=== PATIENT | male | born 1975 | race Caucasian/White ===

== ENCOUNTER 2019-03-06 05:57 | Observation (INO) ==
[2019-02-27 08:45] LABS: BASO# 0.05 X1000 (0.0-0.2); BASO% 0.6 % (0.0-0.8); EOS# 0.16 X1000 (0.0-0.7); HEMATOCRIT 45.8 % (42.0-52.0); HEMOGLOBIN 15.5 g/dL (14.0-18.0); LYMPH# 2.14 X1000 (1.2-3.4); LYMPH% 27.2 % (20.5-51.1); MCHC 33.8 g/dL (33-37); MCV 91.6 FL (81-99); MONO# 0.77 X1000 (0.11-0.59); MONO% 9.8 % (1.7-9.3); MPV 10.4 FL (7.4-10.4); NEUT# 4.76 X1000 (1.4-6.5); NEUT% 60.4 % (42.2-75.2); PLT 303 X1000 (130-400); RDW 12.9 % (11.5-14.5); WBC 7.88 X1000 (4.8-10.8)
[2019-02-27 08:55] LABS: AGAP 12; BUN 11 mg/dL (8-22); CALCIUM 9.4 mg/dL (8.8-10.2); CHLORIDE 98 mmol/L (98-107); COSMO 278; CREATININE 1.2 mg/dL (0.7-1.2); ESTIMATED GFR > 60; GLUCOSE 112 mg/dL (70-104); POTASSIUM 3.8 mmol/L (3.5-5.1); SODIUM 139 mmol/L (136-145); TCO2 29 mmol/L (25-35)
--- NOTE | 2019-02-27 09:00 | EKG Report ---
Test Performed on : 02/27/2019 08:20:37 AM Test Reason : PAT Blood Pressure : / mmHG Vent. Rate : 069 BPM Atrial Rate : 069 BPM P-R Int : 174 ms QRS Dur : 104 ms QT Int : 376 ms P-R-T Axes : 043 019 038 degrees QTc Int : 402 ms Normal sinus rhythm. Normal ECG No previous ECGs available Confirmed by Lewis Eric MD ([id number]) on 03/03/2019 4:08:39 PM
[2019-03-06] MEDS ORDERED: REGLAN ONE (06:20)
[2019-03-06] MEDS ORDERED: LR 1,000 ML ONE ×2 (06:20→08:53)
[2019-03-06] MEDS ORDERED: PEPCID ONE (06:20)
[2019-03-06] MEDS ORDERED: NAROPIN 0.2% ONE (06:36)
[2019-03-06] MEDS ORDERED: DIPRIVAN 1% ONE (06:40)
[2019-03-06] MEDS ORDERED: SUFENTA ONE (06:47)
[2019-03-06] MEDS ORDERED: VERSED ONE (06:51)
[2019-03-06] MEDS: DILAUDID ONE ×3 (08:40→10:15)
[2019-03-06] MEDS ORDERED: PEPCID PO PRN (10:10)
[2019-03-06] MEDS ORDERED: HYDROCHLOROTHIAZIDE PO SCH ×2 (10:15→10:30)
[2019-03-06] MEDS ORDERED: NON-FORMULARY MED (Dapagliflozin Propanediol [Farxiga] 10 MG) PO SCH (10:15)
[2019-03-06] MEDS ORDERED: VALSARTAN PO SCH (10:15)
[2019-03-06] MEDS ORDERED: DIOVAN PO SCH (10:30)
[2019-03-06] MEDS: DECADRON IV SCH ×2 (11:05→17:39)
[2019-03-06] MEDS: LR 1,000 ML IV SCH ×2 (11:08→19:11)
[2019-03-06] MEDS: TYLENOL LIQUID PO PRN ×3 (11:20→20:27)
--- NOTE | 2019-03-06 12:25 | OPERATIVE NOTE ---
PROCEDURE DATE: 03/06/2019 PREOPERATIVE DIAGNOSES: 1. Obstructive sleep apnea. 2. Tonsillar hypertrophy. POSTOPERATIVE DIAGNOSES: 1. Obstructive sleep apnea. 2. Tonsillar hypertrophy. PROCEDURE PERFORMED: Tonsillectomy. SURGEON: Davis Thompson M.D. COMPLICATIONS: None. ANESTHESIA: General with endotracheal intubation. FINDINGS: 3+ tonsils. DESCRIPTION OF PROCEDURE: The patient was identified and consented. Options were reviewed. He was brought to the operating room, placed in the supine position, where general anesthesia was induced with endotracheal intubation. The McIvor mouth gag was used for oropharyngeal visualization. A red rubber catheter was placed through the nose, and brought out through the mouth for soft palate retraction. The nasopharynx revealed very small adenoids, so these were not addressed as they were not part of his obstructive sleep apnea picture. The right tonsil was grasped with a curved Allis clamp. Medial traction was applied. Anterior mucosal incision was performed, and a capsule dissection facilitated removal of the entire tonsil tissue. Meticulous attention was paid to hemostasis using electrocautery, as well as preservation of the anterior and posterior tonsil pillar musculature and removal of the entire tonsil tissue. Contralateral tonsillectomy was performed in similar fashion. Ropivacaine 0.2% was injected into the tonsil fossa bilaterally. He was allowed to recover from anesthesia. Throat was irrigated and suctioned prior to extubation. He was extubated and transferred to the recovery room in stable condition. cc: Davis Thompson MD
[2019-03-06] MEDS: DEMEROL PO PRN ×2 (17:39→22:31)
[2019-03-07] MEDS: LR 1,000 ML IV SCH (01:30)
[2019-03-07] MEDS: DECADRON IV SCH (01:32)
[2019-03-07] MEDS: TYLENOL LIQUID PO PRN ×2 (01:34→08:00)
[2019-03-07 08:11] VITALS: BP 138/95
== END 2019-03-07 09:18 | disposition home or self-care (01) ==
LOC: OPS 05:57 → ICU 05:57 → PAT 05:57
PROVIDERS: ADMIT Otolaryngology Otolaryngology/Facial Plastic Surgery; ATTEND Otolaryngology Otolaryngology/Facial Plastic Surgery